=== PATIENT | male | born 1935 | race Caucasian/White ===

== ENCOUNTER 2021-04-21 10:20 | Emergency (ER) | payer MEDICARE, BC ==
[~2021-04-21] VITALS: Ht 180.3 cm; Wt 67.1 kg
[2021-04-21 10:58] LABS: BASOPHILS ABSOLUTE AUTO 0.06 K/mm3 (0.00-0.23); BASOPHILS PERCENT AUTO 1 % (0-2); EOSINOPHILS ABSOLUTE AUTO 0.11 K/mm3 (0.00-0.68); EOSINOPHILS PERCENT AUTO 1 % (0-6); Hemoglobin 13.5 g/dL (13.5-17.5); IMMATURE GRAN ABSOLUTE AUTO 0.02 K/mm3 (0.00-0.10); IMMATURE GRAN PERCENT AUTO 0 % (0-1); LYMPHOCYTES ABSOLUTE AUTO 1.42 K/mm3 (0.84-5.20); LYMPHOCYTES PERCENT AUTO 16 % (21-46); MONOCYTES ABSOLUTE AUTO 0.66 K/mm3 (0.16-1.47); MONOCYTES PERCENT AUTO 8 % (4-13); Mean Corpuscular HGB 30.5 pg (26.0-34.0); Mean Corpuscular HGB Conc 32.1 g/dL (31.5-36.5); Mean Corpuscular Volume 95 fL (80-100); Mean Platelet Volume 10.9 fL (9.1-12.4); NEUTROPHILS ABSOLUTE AUTO 6.37 K/mm3 (1.96-9.15); NEUTROPHILS PERCENT AUTO 74 % (41-73); Platelet Count 176 K/mm3 (150-400); RDW Coefficient Variation 15.2 % (11.7-14.2); RDW Standard Deviation 53.7 fL (35.1-46.3); Red Blood Cell Count 4.42 M/mm3 (4.30-5.90); White Blood Cell Count 8.64 K/mm3 (4.00-11.30)
[2021-04-21 11:18] LABS: Alanine Aminotransfer (ALT/SGP 26 U/L (12-78); Albumin, Blood 3.6 g/dL (3.4-5.0); Albumin/Globulin Ratio 1.1 (0.8-1.8); Alk Phos 78 U/L (50-136); Anion Gap 8 mmol/L (6-16); Aspartate Aminotrans (AST/SGOT 23 U/L (12-37); Bilirubin, Total 0.9 mg/dL (0.1-1.0); Blood Urea Nitrogen 25 mg/dL (8-24); Bun/Creatinine Ratio 30.4 (12.0-20.0); CO2, Blood 22 mmol/L (21-32); Calcium, Blood 8.8 mg/dL (8.5-10.1); Chloride, Blood 110 mmol/L (98-108); Creatinine, Blood 0.82 mg/dL (0.60-1.20); Globulin, Blood 3.2 g/dL (2.2-4.0); Glomerular Filtration Rate >60 (60-); Glucose, Blood 89 mg/dL (70-99); Potassium, Blood 4.5 mmol/L (3.5-5.5); Sodium, Blood 140 mmol/L (136-145); Total Protein, Blood 6.8 g/dL (6.4-8.2); Troponin I <0.015 ng/mL (0.000-0.040)
[2021-04-21] MEDS ORDERED: METO25ER (15:21)
[2021-04-21] MEDS ORDERED: TAMS.4ER PO (15:22)
[2021-04-21] MEDS ORDERED: 1/2 NS 250ml250 ML (15:22)
[2021-04-21] MEDS ORDERED: CEFD300 PO (16:49)
== END 2021-04-21 17:25 | disposition home or self-care (01) ==
LOC: ER 10:20
PROVIDERS: Physician Assistant
DX: R91.8 Other nonspecific abnormal finding of lung field (principal); R00.2 Palpitations; Z88.0 Allergy status to penicillin
CPT/HCPCS: 71046; 71260; 80053; 84484; 85025; 93005; 93010; 93242; 99285-25; A9270; J0696; Q9967

== ENCOUNTER 2023-08-08 05:34 | Day surgery (SDC) | payer MEDICARE, BC ==
[~2023-08-08] VITALS: Ht 177.8 cm; Wt 71.3 kg
[~2023-08-08 05:34] MED LIST: 1/2 NS 250ml250 ML; CEFD300 PO; METO25ER; TAMS.4ER PO
[2023-08-08] MEDS ORDERED: NAC600 MG PO (06:22)
[2023-08-08] MEDS ORDERED: FINA5 PO (06:22)
[2023-08-08] MEDS ORDERED: ELIQUIS5 M2 PO (06:22)
[2023-08-08] MEDS ORDERED: ESCI10 PO (06:22)
[2023-08-08] MEDS ORDERED: METO25ER PO (06:23)
[2023-08-08] MEDS ORDERED: RESVERATIN PLU1 EACH PO (06:24)
[2023-08-08] MEDS ORDERED: NS 1,000 ML IV ONE (06:31)
[2023-08-08 06:39] VITALS: BP 141/92
[2023-08-08] MEDS ORDERED: Benzocaine Oral Spray 0.5ML UD MT ONE ×2 (06:48)
[2023-08-08 07:36] VITALS: BP 131/76
--- NOTE | 2023-08-08 07:36 | NUR ---
ASSUMED CARE FROM ANESTHESIA. PT AWAKE AND VERBALIZING WELL.
[2023-08-08 07:42] VITALS: BP 136/85
--- NOTE | 2023-08-08 08:00 | NUR ---
PT VERBALIZED UNDERSTANDING OF WRITTEN AND VERBAL D/C INST. IV REMOVED. PT WILL BE TAKEN OUT OF THE HRT CENTER VIA W/C.
[2023-08-08] MEDS ORDERED: propofoL 20 ML IV ONE ×2 (10:58)
[2023-08-08] MEDS ORDERED: Glycopyrrolate 0.2 MG/ML 5ML VIAL IV ONE (10:58)
[2023-08-08] MEDS ORDERED: Etomidate 2MG / ML 10ML Vial IV ONE (10:58)
== END 2023-08-08 22:49 | disposition home or self-care (01) ==
LOC: MHTC 05:34 → ORSCMMR 05:34 → ORD 07:00 → ORSCMMR 22:49
DX: I08.3 Combined rheumatic disorders of mitral, aortic and tricuspid valves (principal); I70.0 Atherosclerosis of aorta; I48.19 Other persistent atrial fibrillation; I11.9 Hypertensive heart disease without heart failure; I27.20 Pulmonary hypertension, unspecified; Z79.01 Long term (current) use of anticoagulants; Z79.899 Other long term (current) drug therapy; Z88.0 Allergy status to penicillin; Z88.8 Allergy status to other drugs, medicaments and biological substances
CPT/HCPCS: 93312; 93325; A9270; J2704; J7030

== ENCOUNTER 2024-01-02 05:58 | Day surgery (SDC) | payer MEDICARE, BC ==
[~2024-01-02] VITALS: Ht 180.3 cm; Wt 74.8 kg
[2024-01-02] VITALS (7 sets, daily range): BP systolic 126–178; BP diastolic 72–95
[~2024-01-02 05:58] MED LIST changes: +ELIQUIS5 M2 PO; +ESCI10 PO; +FINA5 PO; +METO25ER PO; +NAC600 MG PO; +RESVERATIN PLU1 EACH PO
[2024-01-02] MEDS ORDERED: WARF5 PO (06:24)
[2024-01-02] MEDS ORDERED: NS 1,000 ML IV ONE (06:35)
--- NOTE | 2024-01-02 07:12 | NUR ---
ASSUMED CARE FROM ANESTHESIA. PT AWAKE AND VERBALIZING WELL.
--- NOTE | 2024-01-02 07:52 | NUR ---
PT AND VERBALIZED UNDERSTANDING OF WRITTEN AND VERBAL D/C INST. IV REMOVED. PT AMB IN RM /S DIFFICULTY. TAKING PO FLUIDS WELL. PT TAKEN OUT OF THE HRT CENTER VIA W/C.
[2024-01-02] MEDS ORDERED: Propofol 10mg/ml 20 ml Vial (Procedural) IV ONE (09:51)
== END 2024-01-02 22:48 | disposition home or self-care (01) ==
LOC: MHTC 05:58
DX: I51.3 Intracardiac thrombosis, not elsewhere classified (principal); I48.19 Other persistent atrial fibrillation; Z98.890 Other specified postprocedural states; Z79.899 Other long term (current) drug therapy; Z88.8 Allergy status to other drugs, medicaments and biological substances
CPT/HCPCS: 93312; 93325; J2704; J7030

== ENCOUNTER → 2024-01-19 | Outpatient (CLI) | payer MEDICARE, BC ==
[~2024-01-19] MED LIST changes: +WARF5 PO
[2024-01-25 23:58] LABS: HOURS COLLECTED 24 hr; TOTAL VOLUME 1900 mL
== END ==
LOC: LAB SHORT 06:40 → LAB 06:40
PROVIDERS: Registered Nurse
DX: E85.9 Amyloidosis, unspecified (principal); R93.1 Abnormal findings on diagnostic imaging of heart and coronary circulation
CPT/HCPCS: 84156; 84166; 86335

== ENCOUNTER → 2024-04-24 | Outpatient (CLI) | payer MEDICARE, BC ==
[2024-04-24 18:46] LABS: Appearance, Urine Cloudy (Clear); Bilirubin, Urine Neg (Neg); Blood, Urine 2+ (Neg); Color, Urine Yellow (P-Yellow); Glucose Qualitative, Urine Neg (Neg); Ketones, Urine Neg (Neg); Leukocyte Esterase, Urine 3+ (Neg); Nitrite, Urine Neg (Neg); Protein, Urine 2+ (Neg); Specific Gravity, Urine 1.015 (1.003-1.022); Urobilinogen, Urine NORM (Normal)
[2024-04-24 19:01] LABS: Bacteria Many /hpf; Squamous Epithelial Cells Rare /hpf (Few); White Blood Cells, Urine 50-100 /hpf (0-5)
== END | disposition home or self-care (01) ==
LOC: LAB SHORT 17:08 → LAB 17:08
PROVIDERS: Nurse Practitioner Family
DX: R39.9 Unspecified symptoms and signs involving the genitourinary system (principal)
CPT/HCPCS: 81001; 87086

== ENCOUNTER → 2024-07-02 | Outpatient (CLI) | payer MEDICARE, BC ==
[2024-07-02 13:09] LABS: Source, Urine Clean Catch
[2024-07-02 14:22] LABS: Appearance, Urine Hazy (Clear); Bilirubin, Urine Neg (Neg); Blood, Urine 1+ (Neg); Color, Urine Yellow (P-Yellow); Glucose Qualitative, Urine Neg (Neg); Ketones, Urine Neg (Neg); Leukocyte Esterase, Urine 3+ (Neg); Nitrite, Urine Neg (Neg); Protein, Urine 2+ (Neg); Urobilinogen, Urine NORM (Normal)
[2024-07-02 14:51] LABS: Bacteria Mod /hpf; Squamous Epithelial Cells Rare /hpf (Few); White Blood Cells, Urine TNTC /hpf (0-5)
== END ==
LOC: LAB SHORT 13:07 → LAB 13:07
PROVIDERS: Nurse Practitioner Family
DX: R39.9 Unspecified symptoms and signs involving the genitourinary system (principal)
CPT/HCPCS: 81001; 87086